=== PATIENT | female | born 1980 | race Caucasian/White ===

== ENCOUNTER 2017-10-24 20:37 | Emergency (ER) | payer BC ==
[2017-10-24 20:43] VITALS: BP 166/89; PULSE 108; RESP 20; TEMP 99.1
[2017-10-24 21:17] LABS: Appearance,Urine Turbid (Clear); Bacteria,Urine Occasional /hpf; Bilirubin,Urine Negative (Negative); Glucose,Urine (UA) Negative (Negative); Ketones,Urine Negative (Negative); Leukocyte Esterase,Urine Large (Negative); Nitrite,Urine Negative (Negative); PH, Urine 5.5 (5.0-8.0); Particle Count 55299; Protein,Urine 2+ (Negative); RBC,Urine >182 /hpf (0-5); Specific Gravity,Urine 1.025 (1.001-1.035); Squamous Epithelial Cell,Urine 11 /hpf (0-4); UA Billing (MACRO vs. MICRO) MICRO; Urobilinogen,Urine <2.0 mg/dL (<2.0); WBC,Urine >182 /hpf (0-5)
[2017-10-24] MEDS ORDERED: PHENAZOPYRIDINE 100 MG TAB PO STA (21:20)
[2017-10-24] MEDS ORDERED: NITROFURANTOIN MONOHYD/M-CRYST 100 MG CAP PO STA (21:20)
--- NOTE | 2017-10-24 21:24 | ED ---
Female Urogenital HPI - General Chief complaint: Urogenital Stated complaint: Poss UTI Time Seen by Provider: 10/24/17 20:48 Source: patient, RN notes reviewed, old records reviewed Mode of arrival: ambulatory Limitations: no limitations - History of Present Illness Initial comments: 37-year-old female chief complaint of possible urinary tract infection. She reports she noticed blood in her urine. She is also currently on her menstrual cycle, but states that the blood that she noted her urine could have been coming from her vagina. Patient states that she's had no fever or chills. Denies any back pain or abdominal pain. She reports she's had some urinary frequency as well as dysuria. She states that she's had a urinary tract infection 7 years ago, nothing recent but it felt similar to this. Patient states that she has had no vaginal discharge. Denies any chance of she is on her menstrual cycle.Patient denies any recent fever, chills, shortness of breath, chest pain, back pain, abdominal pain, nausea vomiting, numbness or tingling, , constipation or diarrhea, headaches or visual changes, or any other current symptoms - Related Data Home Medications Medication Instructions Recorded Confirmed Acetaminophen [Tylenol Extra 1,000 mg PO BID PRN 10/24/17 10/24/17 Strength] Calcium Carbonate [Calcium] 600 mg PO DAILY 10/24/17 10/24/17 Mometasone Furoate [Asmanex Hfa] 1 puff INHALATION RT-DAILY 10/24/17 10/24/17 Multivitamins, Thera [Multivitamin 1 tab PO DAILY 10/24/17 10/24/17 (formulary)] [place]-3 Fatty Acids [[place]-3] 1,000 mg PO DAILY 10/24/17 10/24/17 Previous Rx's Medication Instructions Recorded Nitrofurantoin Monohyd/M-Cryst 100 mg PO Q12HR #14 cap 10/24/17 [Macrobid] Phenazopyridine [Pyridium] 100 mg PO TID #9 tablet 10/24/17 Allergies Allergy/AdvReac Type Severity Reaction Status Date / Time aspirin Allergy Anaphylaxis Verified 10/24/17 20:51 NSAIDS (Non-Steroidal Allergy Anaphylaxis Verified 10/24/17 20:51 Anti-Inflamma Penicillins Allergy Rash/Hives Verified 10/24/17 20:51 Sulfa (Sulfonamide Allergy Rash/Hives Verified 10/24/17 20:51 Antibiotics) gluten AdvReac Nausea & Verified 10/24/17 20:51 Vomiting & Diarrhea Review of Systems ROS Statement: Those systems with pertinent positive or pertinent negative responses have been documented in the HPI. ROS Other: All systems not noted in ROS Statement are negative. Past Medical History Additional Past Medical History / Comment(s): anaphylaxis History of Any Multi-Drug Resistant Organisms: None Reported Past Surgical History: No Surgical Hx Reported Past Psychological History: No Psychological Hx Reported Smoking Status: Never smoker Past Alcohol Use History: None Reported Past Drug Use History: None Reported General Exam - General Exam Comments Initial Comments: Well-appearing 37-year-old feel. No distress. Patient is morbidly obese. Limitations: no limitations General appearance: alert, in no apparent distress Head exam: Present: atraumatic, normocephalic, normal inspection Eye exam: Present: normal appearance, PERRL, EOMI. Absent: scleral icterus, conjunctival injection, periorbital swelling ENT exam: Present: normal exam, mucous membranes moist Neck exam: Present: normal inspection. Absent: tenderness, meningismus, lymphadenopathy Respiratory exam: Present: normal lung sounds bilaterally. Absent: respiratory distress, wheezes, rales, rhonchi, stridor Cardiovascular Exam: Present: regular rate, normal rhythm, normal heart sounds. Absent: systolic murmur, diastolic murmur, rubs, gallop, clicks GI/Abdominal exam: Present: soft, normal bowel sounds. Absent: distended, tenderness, guarding, rebound, rigid Extremities exam: Present: normal inspection, full ROM, normal capillary refill. Absent: tenderness, pedal edema, joint swelling, calf tenderness Back exam: Present: normal inspection Neurological exam: Present: alert, oriented X3, CN II-XII intact Psychiatric exam: Present: normal affect, normal mood Course Vital Signs 10/24/17 20:39 Temperature 99.1 F Pulse Rate 108 H Respiratory 20 Rate Blood Pressure 166/89 O2 Sat by Pulse 97 Oximetry Medical Decision Making - Medical Decision Making 37-year-old female presents emergency Department with dysuria and hematuria for approximately one day. Currently on menstrual cycle. Patient has no abdominal pain or tenderness. No CVA tenderness. Patient's urinalysis is significantly positive for infection with multiple red blood cells, white blood cells, bacteria. Urine culture will be obtained. She does have multiple ALLERGIES to antibiotics. Patient will be started on Macrobid, started in the emergency department. Also discharged with Pyridium. Discussed close follow-up with primary care provider regards to urine culture. Patient understands treatment plan will comply. Return parameters were discussed. - Lab Data Lab Results 10/24/17 10/24/17 Range/Units 20:53 20:53 Urine Color Dark Brown Urine Appearance Turbid H (Clear) Urine pH 5.5 (5.0-8.0) Ur Specific [place] 1.025 (1.001-1.035) Urine Protein 2+ H (Negative) Urine Glucose (UA) Negative (Negative) Urine Ketones Negative (Negative) Urine Blood Large H (Negative) Urine Nitrite Negative (Negative) Urine Bilirubin Negative (Negative) Urine Urobilinogen <2.0 (<2.0) mg/dL Ur Leukocyte Esterase Large H (Negative) Urine RBC >182 H (0-5) /hpf Urine WBC >182 H (0-5) /hpf Urine WBC Clumps Many H (None) /hpf Ur Squamous Epith Cells 11 H (0-4) /hpf Urine Bacteria Occasional H (None) /hpf Urine HCG, Qual Not Detected (Not Detectd) Disposition Clinical Impression: UTI (urinary tract infection) Disposition: HOME SELF-CARE Instructions: Urinary Tract Infection in Women (ED) Additional Instructions: Patient is to rest, remain hydrated. Take the medicine as prescribed. Follow- up with primary care provider. Return to the emergency department if any alarming signs or symptoms occur. Prescriptions: Nitrofurantoin Monohyd/M-Cryst [Macrobid] 100 mg PO Q12HR #14 cap Phenazopyridine [Pyridium] 100 mg PO TID #9 tablet Referrals: Shayan Bullock MD [Primary Care Provider] - 1-2 days Time of Disposition: 21:22
== END 2017-10-24 21:37 | disposition home or self-care (01) ==
LOC: EC 20:37
DX: N39.0 Urinary tract infection, site not specified (principal); E66.01 Morbid (severe) obesity due to excess calories; Z68.43 Body mass index [BMI] 50.0-59.9, adult; Z88.6 Allergy status to analgesic agent; Z88.2 Allergy status to sulfonamides; Z88.0 Allergy status to penicillin; Z88.8 Allergy status to other drugs, medicaments and biological substances; Z79.51 Long term (current) use of inhaled steroids; Z79.899 Other long term (current) drug therapy
CPT/HCPCS: 81001; 81025; 87077; 87086; 87186; 99284

== ENCOUNTER 2020-07-02 23:37 | Emergency (ER) | payer BC ==
[2020-07-02 23:58] VITALS: RESP 20
--- NOTE | 2020-07-03 00:09 | ED ---
General Adult HPI - General Chief complaint: Urogenital Stated complaint: UTI Time Seen by Provider: 07/02/20 23:44 Source: patient, RN notes reviewed Mode of arrival: ambulatory Limitations: no limitations - History of Present Illness Initial comments: 39-year-old female with past medical history of asthma presents to the emergency department for a chief complaint of possible UTI. Patient reports that a couple hours ago she was getting out of the shower and had to urinate. Patient reports that she noticed there was blood in the toilet bowl. Patient reports that while urinating she did have some burning and discomfort. Patient is concerned she has a urinary tract infection. Patient tried to call her [employer] [employer] at about 10:30 PM but they did not answer so she came to the emergency room. States that she wants to start an antibiotic before work tomorrow. She denies fevers or chills. Denies abdominal pain. Denies back pain.Patient has no other complaints at this time including shortness of breath, chest pain, abdominal pain, nausea or vomiting, headache, or visual changes. - Related Data Home Medications Medication Instructions Recorded Confirmed Acetaminophen [Tylenol Extra 1,000 mg PO BID PRN 10/24/17 10/24/17 Strength] Calcium Carbonate [Calcium] 600 mg PO DAILY 10/24/17 10/24/17 Mometasone Furoate [Asmanex Hfa] 1 puff INHALATION RT-DAILY 10/24/17 10/24/17 Multivitamins, Thera [Multivitamin 1 tab PO DAILY 10/24/17 10/24/17 (formulary)] [place]-3 Fatty Acids [[place]-3] 1,000 mg PO DAILY 10/24/17 10/24/17 Previous Rx's Medication Instructions Recorded Nitrofurantoin Monohyd/M-Cryst 100 mg PO Q12HR #14 cap 10/24/17 [Macrobid] Phenazopyridine [Pyridium] 100 mg PO TID #9 tablet 10/24/17 Nitrofurantoin Monohyd/M-Cryst 100 mg PO Q12HR #14 cap 07/03/20 [Macrobid] Allergies Allergy/AdvReac Type Severity Reaction Status Date / Time aspirin Allergy Anaphylaxis Verified 07/02/20 23:46 NSAIDS (Non-Steroidal Allergy Anaphylaxis Verified 07/02/20 23:46 Anti-Inflamma Penicillins Allergy Rash/Hives Verified 07/02/20 23:46 Sulfa (Sulfonamide Allergy Rash/Hives Verified 07/02/20 23:46 Antibiotics) gluten AdvReac Nausea & Verified 07/02/20 23:46 Vomiting & Diarrhea Review of Systems ROS Statement: Those systems with pertinent positive or pertinent negative responses have been documented in the HPI. ROS Other: All systems not noted in ROS Statement are negative. Past Medical History Past Medical History: Asthma Additional Past Medical History / Comment(s): anaphylaxis History of Any Multi-Drug Resistant Organisms: None Reported Past Surgical History: No Surgical Hx Reported Past Psychological History: No Psychological Hx Reported Smoking Status: Never smoker Past Alcohol Use History: None Reported Past Drug Use History: None Reported General Exam Limitations: no limitations General appearance: alert, in no apparent distress Head exam: Present: atraumatic, normocephalic, normal inspection Eye exam: Present: normal appearance, PERRL, EOMI. Absent: scleral icterus, conjunctival injection, periorbital swelling ENT exam: Present: normal exam, mucous membranes moist Neck exam: Present: normal inspection, full ROM. Absent: tenderness, meningismus, lymphadenopathy Respiratory exam: Present: normal lung sounds bilaterally. Absent: respiratory distress, wheezes, rales, rhonchi, stridor Cardiovascular Exam: Present: regular rate, normal rhythm, normal heart sounds. Absent: systolic murmur, diastolic murmur, rubs, gallop, clicks GI/Abdominal exam: Present: soft, normal bowel sounds. Absent: distended, tenderness, guarding, rebound, rigid Back exam: Absent: CVA tenderness (R), CVA tenderness (L) Course Vital Signs 07/02/20 23:40 Temperature 98.7 F Pulse Rate 110 H Respiratory 20 Rate Blood Pressure 170/95 O2 Sat by Pulse 97 Oximetry Medical Decision Making - Medical Decision Making Patient does have urinary tract infection noted. Urine culture pending. Patient will be treated with Rocephin which was discussed with her. Patient was agreeable to this. Patient requesting Macrobid as that is a gluten-free [place] has helped her in the past. Patient last had Macrobid about 3 years ago. Patient does not have any fevers or upper back pain. Patient will be discharged home to follow up with primary care. She is to return here for any worsening symptoms. - Lab Data Lab Results 07/02/20 07/02/20 Range/Units 23:58 23:58 Urine Color Red Urine Appearance Turbid H (Clear) Urine pH 6.5 (5.0-8.0) Ur Specific [place] 1.021 (1.001-1.035) Urine Protein 1+ H (Negative) Urine Glucose (UA) Negative (Negative) Urine Ketones Trace H (Negative) Urine Blood Moderate H (Negative) Urine Nitrite Positive H (Negative) Urine Bilirubin Negative (Negative) Urine Urobilinogen <2.0 (<2.0) mg/dL Ur Leukocyte Esterase Large H (Negative) Urine RBC >182 H (0-5) /hpf Urine WBC 116 H (0-5) /hpf Ur Squamous Epith Cells 8 H (0-4) /hpf Urine Mucus Occasional H (None) /hpf Urine HCG, Qual Not Detected (Not Detectd) Disposition Clinical Impression: Urinary tract infection Disposition: HOME SELF-CARE Condition: Good Instructions (If sedation given, give patient instructions): Urinary Tract Infection in Women (ED) Additional Instructions: Please take antibiotic as directed. Please follow-up with your primary care provider in one to 2 days. If you have any worsening symptoms such as fevers or upper back pain return here to the emergency room. Prescriptions: Nitrofurantoin Monohyd/M-Cryst [Macrobid] 100 mg PO Q12HR 7 Days #14 cap Is patient prescribed a controlled substance at d/c from ED?: No Referrals: Shayan Bullock MD [Primary Care Provider] - 1-2 days Time of Disposition: 00:34
[2020-07-03 00:13] LABS: Appearance,Urine Turbid (Clear); Bilirubin,Urine Negative (Negative); Blood,Urine Moderate (Negative); Color,Urine Red; Glucose,Urine (UA) Negative (Negative); Ketones,Urine Trace (Negative); Leukocyte Esterase,Urine Large (Negative); Mucus,Urine Occasional /hpf; Nitrite,Urine Positive (Negative); PH, Urine 6.5 (5.0-8.0); Protein,Urine 1+ (Negative); RBC,Urine >182 /hpf (0-5); Specific Gravity,Urine 1.021 (1.001-1.035); Squamous Epithelial Cell,Urine 8 /hpf (0-4); Urobilinogen,Urine <2.0 mg/dL (<2.0); WBC,Urine 116 /hpf (0-5)
[2020-07-03] MEDS ORDERED: cefTRIAXone 1,000 MG VIAL (IM USE) IM STA (00:24)
[2020-07-03 00:44] VITALS: BP 166/84; PULSE 99; TEMP 98.4
== END 2020-07-03 00:46 | disposition home or self-care (01) ==
LOC: EC 23:37
DX: N39.0 Urinary tract infection, site not specified (principal); J45.909 Unspecified asthma, uncomplicated; Z79.51 Long term (current) use of inhaled steroids; Z88.0 Allergy status to penicillin; Z88.2 Allergy status to sulfonamides; Z88.6 Allergy status to analgesic agent; Z91.018 Allergy to other foods
CPT/HCPCS: 81001; 81025; 87086; 99283; 96372; J0696

== ENCOUNTER 2021-01-31 21:30 | Emergency (ER) | payer BC ==
[2021-01-31 21:34] VITALS: BP 180/99; PULSE 100; RESP 17; TEMP 98.3
--- NOTE | 2021-01-31 22:02 | ED ---
Female Urogenital HPI - General Chief complaint: Urogenital Stated complaint: Poss bladder infection Time Seen by Provider: 01/31/21 21:37 Source: patient Mode of arrival: ambulatory Limitations: no limitations - History of Present Illness Initial comments: Patient is a 40-year-old female presenting to the emergency department with concerns of a possible UTI. Patient states she used the restroom this evening and noticed blood in her urine. She states she has had similar symptoms before with previous UTIs. She admits to some very mild dysuria, but no frequency or urgency. No abdominal pain or nausea or vomiting. No fevers. She has no further complaints at this time. Last Menstrual Period: 01/12/20 - Related Data Home Medications Medication Instructions Recorded Confirmed Acetaminophen [Tylenol Extra 1,000 mg PO BID PRN 10/24/17 10/24/17 Strength] Calcium Carbonate [Calcium] 600 mg PO DAILY 10/24/17 10/24/17 Mometasone Furoate [Asmanex Hfa] 1 puff INHALATION RT-DAILY 10/24/17 10/24/17 Multivitamins, Thera [Multivitamin 1 tab PO DAILY 10/24/17 10/24/17 (formulary)] [place]-3 Fatty Acids [[place]-3] 1,000 mg PO DAILY 10/24/17 10/24/17 Previous Rx's Medication Instructions Recorded Nitrofurantoin Monohyd/M-Cryst 100 mg PO Q12HR #14 cap 10/24/17 [Macrobid] Phenazopyridine [Pyridium] 100 mg PO TID #9 tablet 10/24/17 Nitrofurantoin Monohyd/M-Cryst 100 mg PO Q12HR 5 Days #10 cap 01/31/21 [Macrobid] Allergies Allergy/AdvReac Type Severity Reaction Status Date / Time aspirin Allergy Anaphylaxis Verified 01/31/21 21:34 NSAIDS (Non-Steroidal Allergy Anaphylaxis Verified 01/31/21 21:34 Anti-Inflamma Penicillins Allergy Rash/Hives Verified 01/31/21 21:34 Sulfa (Sulfonamide Allergy Rash/Hives Verified 01/31/21 21:34 Antibiotics) gluten AdvReac Nausea & Verified 01/31/21 21:34 Vomiting & Diarrhea Review of Systems ROS Statement: Those systems with pertinent positive or pertinent negative responses have been documented in the HPI. ROS Other: All systems not noted in ROS Statement are negative. Past Medical History Past Medical History: Asthma Additional Past Medical History / Comment(s): anaphylaxis History of Any Multi-Drug Resistant Organisms: None Reported Past Surgical History: No Surgical Hx Reported Past Psychological History: No Psychological Hx Reported Smoking Status: Never smoker Past Alcohol Use History: None Reported Past Drug Use History: None Reported General Exam - General Exam Comments Initial Comments: GENERAL: Patient is well-developed and well-nourished. Patient is nontoxic and in no acute distress. HEAD: Atraumatic, normocephalic. EYES: Pupils equal round and reactive to light, extraocular movements intact, sclera anicteric, conjunctiva are normal. Eyelids were unremarkable. ENT: Nares patent, oropharynx clear without exudates. Moist mucous membranes. NECK: Normal range of motion, supple without lymphadenopathy or JVD. LUNGS: Unlabored respirations. Breath sounds clear to auscultation bilaterally and equal. No wheezes rales or rhonchi. HEART: Regular rate and rhythm without murmurs, rubs or gallops. ABDOMEN: Soft, nontender, normoactive bowel sounds. No guarding, no rebound. No masses appreciated. : Deferred MUSCULOSKELETAL: Normal extremities with adequate strength and normal range of motion, no pitting or edema. No clubbing or cyanosis. NEUROLOGICAL: Patient is alert and oriented x 3. Symmetrical smile. Normal speech, normal gait. PSYCH: Normal mood, normal affect. SKIN: Warm, Dry, normal turgor, no rashes or lesions noted. Limitations: no limitations Course Vital Signs 01/31/21 21:32 Temperature 98.3 F Pulse Rate 100 Respiratory 17 Rate Blood Pressure 180/99 O2 Sat by Pulse 96 Oximetry Medical Decision Making - Medical Decision Making Patient is a 40-year-old female here with concerns of a possible UTI. She had some mild hematuria just before arrival, she's had UTIs in the past with similar symptoms. Mild dysuria. Urine shows a large amount of blood, no bacteria. I discussed with patient his results. She is very concerned that this is only getting worse. I will give her a prescription for Macrobid, recommended waiting a few days to see how her symptoms are. Patient is stable for discharge. Patient is in agreement with this plan of care. Return parameters were discussed with the patient and they verbalized understanding. Case discussed with Dr. Quezada. - Lab Data Lab Results 01/31/21 01/31/21 Range/Units 21:46 21:46 Urine Color Colorless Urine Appearance Clear (Clear) Urine pH 6.5 (5.0-8.0) Ur Specific [place] 1.000 L (1.001-1.035) Urine Protein Negative (Negative) Urine Glucose (UA) Negative (Negative) Urine Ketones Negative (Negative) Urine Blood Large H (Negative) Urine Nitrite Negative (Negative) Urine Bilirubin Negative (Negative) Urine Urobilinogen <2.0 (<2.0) mg/dL Ur Leukocyte Esterase Small H (Negative) Urine RBC <1 (0-5) /hpf Urine WBC 1 (0-5) /hpf Urine HCG, Qual Not Detected (Not Detectd) Disposition Clinical Impression: Hematuria, Urinary tract infection Disposition: HOME SELF-CARE Condition: Stable Instructions (If sedation given, give patient instructions): Urinary Tract Infection in Women (ED) Additional Instructions: Please return to the Emergency Department if symptoms worsen or any other concerns. Take medication as prescribed. Please follow-up with your regular family doctor. Prescriptions: Nitrofurantoin Monohyd/M-Cryst [Macrobid] 100 mg PO Q12HR 5 Days #10 cap Is patient prescribed a controlled substance at d/c from ED?: No Referrals: Shayan Bullock MD [Primary Care Provider] - 1-2 days Time of Disposition: 22:42
[2021-01-31 22:09] LABS: Appearance,Urine Clear (Clear); Bilirubin,Urine Negative (Negative); Blood,Urine Large (Negative); Color,Urine Colorless; Glucose,Urine (UA) Negative (Negative); Ketones,Urine Negative (Negative); Leukocyte Esterase,Urine Small (Negative); Nitrite,Urine Negative (Negative); PH, Urine 6.5 (5.0-8.0); Protein,Urine Negative (Negative); RBC,Urine <1 /hpf (0-5); Urobilinogen,Urine <2.0 mg/dL (<2.0); WBC,Urine 1 /hpf (0-5)
== END 2021-01-31 22:57 | disposition home or self-care (01) ==
LOC: EC 21:30
DX: N39.0 Urinary tract infection, site not specified (principal); J45.909 Unspecified asthma, uncomplicated
CPT/HCPCS: 81001; 81025; 99283

== ENCOUNTER 2023-03-30 05:30 | Emergency (ER) | payer BC ==
[2023-03-30 05:38] VITALS: PULSE 94; RESP 16; TEMP 98.7
--- NOTE | 2023-03-30 06:07 | ED ---
ENT HPI - General Chief complaint: ENT Stated complaint: Qtip stuck in ear Time Seen by Provider: 03/30/23 05:59 Source: patient, RN notes reviewed Mode of arrival: ambulatory Limitations: no limitations - History of Present Illness Initial comments: This is a 42-year-old female who presents to the emergency department for a foreign body in the left ear. States that earlier this morning, she was trying to itch her ear and the fuzzy head of a Q-tip got stuck. Denies any pain, but states that she has a sensation of fullness. She has not noticed any drainage from the ear. Denies any fevers, chills, sore throat, cough, dyspnea, chest pain, palpitations, abdominal pain, nausea, vomiting, diarrhea, back pain, or headaches. MD complaint: other (Foreign body in left ear) - Related Data Home Medications Medication Instructions Recorded Confirmed Acetaminophen [Tylenol Extra 1,000 mg PO BID PRN 10/24/17 10/24/17 Strength] Calcium Carbonate [Calcium] 600 mg PO DAILY 10/24/17 10/24/17 Mometasone Furoate [Asmanex Hfa] 1 puff INHALATION RT-DAILY 10/24/17 10/24/17 Multivitamins, Thera [Multivitamin 1 tab PO DAILY 10/24/17 10/24/17 (formulary)] Winkelman-3 Fatty Acids [Winkelman-3] 1,000 mg PO DAILY 10/24/17 10/24/17 Previous Rx's Medication Instructions Recorded Nitrofurantoin Monohyd/M-Cryst 100 mg PO Q12HR #14 cap 10/24/17 [Macrobid] Phenazopyridine [Pyridium] 100 mg PO TID #9 tablet 10/24/17 Nitrofurantoin Monohyd/M-Cryst 100 mg PO Q12HR 5 Days #10 cap 01/31/21 [Macrobid] Allergies Allergy/AdvReac Type Severity Reaction Status Date / Time aspirin Allergy Anaphylaxis Verified 03/30/23 05:34 NSAIDS (Non-Steroidal Allergy Anaphylaxis Verified 03/30/23 05:34 Anti-Inflamma Penicillins Allergy Rash/Hives Verified 03/30/23 05:34 Sulfa (Sulfonamide Allergy Rash/Hives Verified 03/30/23 05:34 Antibiotics) gluten AdvReac Nausea & Verified 03/30/23 05:34 Vomiting & Diarrhea Review of Systems ROS Statement: Those systems with pertinent positive or pertinent negative responses have been documented in the HPI. ROS Other: All systems not noted in ROS Statement are negative. 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 Absent: respiratory distress, wheezes, rales, rhonchi, stridor Cardiovascular Exam: Present: regular rate, normal rhythm, normal heart sounds. Absent: systolic murmur, diastolic murmur, rubs, gallop, clicks Neurological exam: Present: alert, oriented X3, CN II-XII intact Psychiatric exam: Present: normal affect, normal mood Skin exam: Present: warm, dry, intact, normal color. Absent: rash Course Vital Signs 03/30/23 03/30/23 05:34 06:08 Temperature 98.7 F Pulse Rate 94 Respiratory 16 Rate Blood Pressure 178/102 177/104 O2 Sat by Pulse 99 Oximetry Procedures - Foreign Body Removal Ear Location: ear canal (L) Foreign Body Suspected: other (cotton head of q-tip) Foreign Body Removed: yes Foreign Body Removal Technique: forceps Tympanic Membrane Intact: Yes Patient Tolerated Procedure: well Complications: none Medical Decision Making - Medical Decision Making This is a 42-year-old female who presents to the emergency department for a foreign body in the left ear. Was pt. sent in by a medical professional or institution? @ -No Did you speak to anyone other than the patient for history? @ -No Did you review nursing and triage notes? @ -Yes, and I agree, it is accurate with regards to the patient's symptoms. Were old charts reviewed? @ -No Differential Diagnosis? @ -Not applicable What testing was considered but not performed? (CT, X-rays, U/S, labs)? Why? @ -None What meds were considered but not given? Why? @ -None Did you discuss the management of the patient with other professionals? @ -No Did you reconcile home meds? @ -No Was smoking cessation discussed for >3mins.? @ -No Was critical care preformed (if so, how long)? @ -No Were there social determinants of health that impacted care today? How? (Homelessness, low income, unemployed, alcoholism, drug addiction, transportation, low edu. Level, literacy, decrease access to med. care, skilled nursing, rehab)? @ -No Was there de-escalation of care discussed even if they declined? (Discuss DNR or withdrawal of care, Hospice)? @ -No What co-morbidities impacted this encounter? (DM, HTN, Smoking, COPD, CAD, Cancer, CVA, Hep., AIDS, mental health diagnosis, sleep apnea, morbid obesity)? @ -None Was patient admitted / discharged? @ -Discharged. The cotton head of the Q-tip was visualized in the ear canal. This was removed easily with alligator forceps. The ear canal and TM was visualized afterwards with no evidence of trauma. The patient noted that the sensation of fullness entirely resolved following the foreign body removal. She continued to remain pain-free. Patient educated on the need to avoid sticking objects in her ear. Undiagnosed new problem with uncertain prognosis? @ -None Drug Therapy requiring intensive monitoring for toxicity (Heparin, Nitro, Insulin, Cardizem)? @ -None Were any procedures done? @ -Left ear FB removal Diagnosis/symptom? @ -Left ear foreign body Acute, or Chronic, or Acute on Chronic? @ -Acute Uncomplicated (without systemic symptoms) or Complicated (systemic symptoms)? @ -Uncomplicated Side effects of treatment? @ -None Exacerbation, Progression, or Severe Exacerbation] @ -Not applicable Poses a threat to life or bodily function? @ -No Return precautions reviewed in depth, the patient is instructed to return to the emergency department with any new, worsening, or concerning symptoms. Patient verbalized understanding. This case was discussed in detail with the attending ED physician, Dr. Quezada. Presentation, findings, and treatment plan discussed in detail as well. Disposition Clinical Impression: Foreign body in left ear Disposition: HOME SELF-CARE Instructions (If sedation given, give patient instructions): Ear Foreign Body (ED) Additional Instructions: Return to the emergency department with any new, worsening, or concerning symptoms. Follow up with your primary care provider in 1-2 days. Is patient prescribed a controlled substance at d/c from ED?: No Referrals: Shayan Bullock MD [Primary Care Provider] - 1-2 days
[2023-03-30 06:14] VITALS: BP 177/104
== END 2023-03-30 06:13 | disposition home or self-care (01) ==
LOC: EC 05:30
DX: T16.2XXA Foreign body in left ear, initial encounter (principal); J45.909 Unspecified asthma, uncomplicated; Z79.51 Long term (current) use of inhaled steroids; Z88.0 Allergy status to penicillin; Z88.1 Allergy status to other antibiotic agents; Z88.2 Allergy status to sulfonamides; Z88.6 Allergy status to analgesic agent
CPT/HCPCS: 69200; 99282